=== PATIENT | female | born 1985 | race Caucasian/White ===

== ENCOUNTER 2021-05-06 19:54 | Emergency (ER) | payer OTHER ==
[2021-05-06 20:08] VITALS: TEMP 98.1
[2021-05-06] MEDS ORDERED: ZITHROMAX Z PA250 MG PO (20:50)
[2021-05-06] MEDS ORDERED: PREDNISONE20 MG PO (20:51)
[2021-05-06 21:36] VITALS: BP 146/102; PULSE 84
== END 2021-05-06 21:36 | disposition home or self-care (01) ==
LOC: COL.ER 19:54
DX: H66.91 Otitis media, unspecified, right ear (principal); J20.9 Acute bronchitis, unspecified; F17.210 Nicotine dependence, cigarettes, uncomplicated; Z88.1 Allergy status to other antibiotic agents